=== PATIENT | male | born 1955 | race Caucasian/White ===

== ENCOUNTER 2017-05-04 18:56 | Observation (INO) | payer OTHER ==
[~2017-05-04] VITALS: Ht 180.3 cm; Wt 117.5 kg
[2017-05-04] VITALS (10 sets, daily range): BP systolic 116–165; BP diastolic 74–93; PULSE 60–75; RESP 18–20; TEMP 99.6; O2SAT 94–96
[~2017-05-04 18:56] MED LIST: ASPI81 CHEW; ATEN1TAB73; CEFU1TAB43 PO; CLON.1 PO; LISI2.5T55 PO; MEDR4PAK3 PO; TAB-TAB PO
[2017-05-04] MEDS ORDERED: ASPIRIN 81 MG CHEW TAB PO ONE (20:00)
[2017-05-04] MEDS ORDERED: SODIUM CHLORIDE 0.9% FLUSH 10 ML FLUSH IVF PRN (20:00)
[2017-05-04] MEDS: NITROGLYCERIN 0.4 MG SL 25 TABS/BTL SL SCH ×2 (20:24→20:30)
[2017-05-04 20:30] LABS: AUTOMATED NEUTROPHIL # 9.5 TH/MM3 (1.8-7.7); BASOPHIL # 0.1 TH/MM3 (0-0.2); BASOPHIL % 0.9 % (0.0-2.0); EOSINOPHIL # 0.4 TH/MM3 (0-0.4); EOSINOPHIL % 3.4 % (0.0-4.0); HEMATOCRIT 41.6 % (39.0-51.0); LYMPH % 13.6 % (9.0-44.0); LYMPHOCYTE # 1.7 TH/MM3 (1.0-4.8); MEAN CELL VOLUME 84.5 FL (80.0-100.0); MEAN CORPUSCULAR HEMOGLOBIN 27.9 PG (27.0-34.0); MONO % 5.4 % (0.0-8.0); NEUT % 76.7 % (16.0-70.0); PLATELET COUNT 212 TH/MM3 (150-450); RED BLOOD COUNT 4.93 MIL/MM3 (4.50-5.90); WHITE BLOOD COUNT 12.4 TH/MM3 (4.0-11.0)
[2017-05-04 20:33] LABS: HEMO FLAGS DIFF FINAL
[2017-05-04 20:34] LABS: CHLORIDE 103 MEQ/L (98-107); SODIUM (NA) 136 MEQ/L (136-145)
[2017-05-04 20:38] LABS: ANION GAP 8 MEQ/L (5-15); BICARBONATE 25.3 MEQ/L (21.0-32.0); BLOOD UREA NITROGEN 18 MG/DL (7-18)
[2017-05-04 20:41] LABS: ALT (GPT) 25 U/L (12-78); AST (GOT) 17 U/L (15-37); GLOMERULAR FILTRATION RATE 68 ML/MIN (>89)
[2017-05-04 20:42] LABS: APTT (PATIENT) 28.5 SEC (24.3-30.1)
[2017-05-04 20:43] LABS: TOTAL BILIRUBIN ADULT 0.6 MG/DL (0.2-1.0)
[2017-05-04 20:44] LABS: ALKALINE PHOSPHATASE 73 U/L (45-117); CREATINE KINASE 109 U/L (39-308)
[2017-05-04 20:56] LABS: CKMB 0.8 NG/ML (0.5-3.6)
[2017-05-04] MEDS ORDERED: POTASSIUM CHLORIDE 10 MEQ CONTROLLED RELEASE TAB PO ONE (21:00)
--- NOTE | 2017-05-04 21:07 | RADRPT ---
EXAM DATE/TIME: 05/04/2017 19:57 [facility] COMPARISON: No previous studies available for comparison. INDICATIONS : Chest pain. MEDICAL HISTORY : None. SURGICAL HISTORY : None. ENCOUNTER: Initial ACUITY: 4 - 6 days PAIN SCORE: 8/10 LOCATION: Bilateral chest FINDINGS: PA and lateral views of the chest demonstrate the lungs to be symmetrically aerated without evidence of mass, infiltrate or effusion. Minimal basal atelectasis. The cardiomediastinal contours are unrema rkable. Osseous structures are intact. CONCLUSION: 1. Minimal base atelectasis. No consolidation or significant effusion. Mildly tortuous aorta. José Manuel Anthony MD on May 04, 2017 at 21:05 Board Certified Radiologist. This report was verified electronically.
--- NOTE | 2017-05-04 21:10 | PD ---
HPI Chief Complaint: Chest Pain Time Seen by Provider: 19:46 Travel History International Travel<30 days: No Contact w/Intl Traveler<30days: No Traveled to known affect area: No History of Present Illness HPI Patient is a 61-year-old male comes in complaining of back and chest pain. He says he's been having pain in the center of his back since Wednesday. He says that recently he has developed pain in tightness to the front of his chest. He says he has never had pain like this before. He says nothing relieves the pain. He says that taking deep breaths makes the pain worse. He has been using a heat pack on his back which has helped a little with the back pain, but he is worried about his chest pain. He denies nausea or vomiting. He says he' s been feeling very weak and tired. He denies fever or chills, he denies cough or cold. PFSH Past Medical History Depression: Yes Diabetes: No Diminished Hearing: No Hypertension: Yes Tetanus Vaccination: < 5 Years Influenza Vaccination: Yes Past Surgical History Neurologic Surgery: Yes (CERVICAL FUSION) Tonsillectomy: Yes (tonsils and adenoids ) Social History Alcohol Use: No Tobacco Use: No Substance Use: No Allergies-Medications (Allergen,Severity, Reaction): Coded Allergies: Lisinopril (Verified Allergy, Severe, angioedema, 05/04/17) All medications that end with -prils Reported Meds & Prescriptions Reported Meds & Active Scripts Active Reported Aspirin 81 Mg Tab 81 Mg CHEW DAILY Multivitamin (Multivitamins) 1 Tab Tab 1 Tab PO DAILY Tenormin (Atenolol) 25 Mg Tab 0 Mg UNKNOWN DOSE Review of Systems Except as stated in HPI: all other systems reviewed are Neg General / Constitutional: No: Fever, Chills Eyes: No: Blurred Vision HENT: No: Headaches, Lightheadedness Cardiovascular: Positive: Chest Pain or Discomfort Respiratory: Positive: Shortness of Breath, No: Cough Gastrointestinal: No: Nausea, Vomiting Musculoskeletal: No: Edema, Pain Skin: No Rash, No Itching, No Change in Pigmentation Neurologic: Positive: Weakness Physical Exam Narrative GENERAL: Awake and alert, in no acute distress. SKIN: Focused skin assessment warm/dry. HEAD: Atraumatic. Normocephalic. EYES: Pupils equal and round. No scleral icterus. ENT: Mucous membranes pink and moist. NECK: Trachea midline. No JVD. CARDIOVASCULAR: Regular rate and rhythm. No murmur appreciated. RESPIRATORY: No accessory muscle use. Clear to auscultation. Breath sounds equal bilaterally. GASTROINTESTINAL: Abdomen soft, non-tender, nondistended. MUSCULOSKELETAL: No obvious deformities. No clubbing. No cyanosis. No edema. NEUROLOGICAL: Awake and alert. No obvious cranial nerve deficits. Motor grossly within normal limits. Normal speech. PSYCHIATRIC: Appropriate mood and affect; insight and judgment normal. Data Data Last Documented VS Vital Signs Date Time Temp Pulse Resp B/P Pulse Ox O2 Delivery O2 Flow Rate FiO2 05/04/17 20:35 75 18 121/74 94 Room Air 05/04/17 19:02 99.6 Orders Electrocardiogram (05/04/17 ) Ckmb (Isoenzyme) Profile (05/04/17 19:53) Complete Blood Count With Diff (05/04/17 19:53) Comprehensive Metabolic Panel (05/04/17 19:53) Prothrombin Time / Inr (Pt) (05/04/17 19:53) Act Partial Throm Time (Ptt) (05/04/17 19:53) Troponin I (05/04/17 19:53) Ecg Monitoring (05/04/17 19:53) Bilateral Bp Monitoring (05/04/17 19:53) Iv Access Insert/Monitor (05/04/17 19:53) Oximetry (05/04/17 19:53) Oxygen Administration (05/04/17 19:53) Aspirin Chew (Aspirin Chew) (05/04/17 20:00) Sodium Chloride 0.9% Flush (Ns Flush) (05/04/17 20:00) Nitroglycerin Sl (Nitrostat Sl) (05/04/17 20:00) Chest, Pa & Lat (05/04/17 19:53) CKMB (05/04/17 20:05) CKMB% (05/04/17 20:05) Potassium Chloride (Kcl) (05/04/17 21:00) Morphine Inj (Morphine Inj) (05/04/17 21:15) Labs Laboratory Tests Test 05/04/17 20:05 White Blood Count 12.4 TH/MM3 Red Blood Count 4.93 MIL/MM3 Hemoglobin 13.8 GM/DL Hematocrit 41.6 % Mean Corpuscular Volume 84.5 FL Mean Corpuscular Hemoglobin 27.9 PG Mean Corpuscular Hemoglobin 33.0 % Concent Red Cell Distribution Width 14.0 % Platelet Count 212 TH/MM3 Mean Platelet Volume 8.6 FL Neutrophils (%) (Auto) 76.7 % Lymphocytes (%) (Auto) 13.6 % Monocytes (%) (Auto) 5.4 % Eosinophils (%) (Auto) 3.4 % Basophils (%) (Auto) 0.9 % Neutrophils # (Auto) 9.5 TH/MM3 Lymphocytes # (Auto) 1.7 TH/MM3 Monocytes # (Auto) 0.7 TH/MM3 Eosinophils # (Auto) 0.4 TH/MM3 Basophils # (Auto) 0.1 TH/MM3 CBC Comment DIFF FINAL Differential Comment Prothrombin Time 11.0 SEC Prothromb Time International 1.0 RATIO Ratio Activated Partial 28.5 SEC Thromboplast Time Sodium Level 136 MEQ/L Potassium Level 3.0 MEQ/L Chloride Level 103 MEQ/L Carbon Dioxide Level 25.3 MEQ/L Anion Gap 8 MEQ/L Blood Urea Nitrogen 18 MG/DL Creatinine 1.10 MG/DL Estimat Glomerular Filtration 68 ML/MIN Rate Random Glucose 92 MG/DL Calcium Level 8.6 MG/DL Total Bilirubin 0.6 MG/DL Aspartate Amino Transf 17 U/L (AST/SGOT) Alanine Aminotransferase 25 U/L (ALT/SGPT) Alkaline Phosphatase 73 U/L Total Creatine Kinase 109 U/L Creatine Kinase MB 0.8 NG/ML Troponin I LESS THAN 0.02 NG/ML Total Protein 7.2 GM/DL Albumin 3.4 GM/DL [facility] Medical Decision Making Medical Screen Exam Complete: Yes Emergency Medical Condition: Yes Medical Record Reviewed: Yes Interpretation(s) ECG shows normal sinus rhythm, no ST elevation or depression, normal intervals Differential Diagnosis ACS versus NSTEMI versus STEMI versus pneumonia versus pneumothorax versus gastroenteritis Narrative Course Patient is a 61-year-old male comes in complaining of back and chest pain. Exam shows no acute abnormalities, pain is not reproducible. IV established, labs sent. Patient connected to the threat monitoring analyst. A potassium of 3.0, this was replaced. Troponin is negative. Chest x-ray shows no acute abnormalities. Patient was given 2 nitroglycerin with improvement of his chest pain. He says he is still having back pain. Given aspirin and morphine. Patient will be placed in chest pain center for further management. He will require a CPAP to sleep at night due to severe sleep apnea. Diagnosis Primary Impression: Chest pain Qualified Code: R07.9 - Chest pain, unspecified type Admitting Information Admitting Physician Requests: Observation Condition: Stable Fide Gorman MD May 04, 2017 21:10
[2017-05-04] MEDS ORDERED: MORPHINE SULFATE 4 MG/ML INJ IV PUSH ONE (21:15)
[2017-05-04] MEDS ORDERED: SODIUM CHLORIDE 0.9% FLUSH 10 ML FLUSH IV FLUSH PRN (21:45)
[2017-05-04] MEDS ORDERED: ASPI325T PO (21:55)
[2017-05-04] MEDS ORDERED: ATEN25TA PO (21:55)
[2017-05-04] MEDS ORDERED: ATOR10TA15 PO (21:56)
[2017-05-04] MEDS ORDERED: MULTTAB67 PO (21:56)
[2017-05-04] MEDS ORDERED: VERA40TA PO (21:57)
[2017-05-04] MEDS ORDERED: POTA10CA PO (21:57)
[2017-05-04] MEDS ORDERED: MAGN250T11 PO (21:58)
[2017-05-04] MEDS ORDERED: Diuretic PO (22:00)
[2017-05-04 23:56] LABS: CREATINE KINASE 92 U/L (39-308)
[2017-05-05] VITALS (13 sets, daily range): BP systolic 106–156; BP diastolic 64–91; PULSE 59–109; RESP 18–20; TEMP 97.1–99.3; O2SAT 94–97
[2017-05-05 02:36] LABS: CREATINE KINASE 93 U/L (39-308)
--- NOTE | 2017-05-05 08:18 | EKG ---
Date Performed: 05/05/2017 Time Performed: 02:03:09 PTAGE: 61 years EKG: Sinus rhythm WITH FREQUENT ECTOPIC PREMATURE COMPLEXES MODERATE T-WAVE ABNORMALITY, CONSIDER LATERAL ISCHEMIA ABN ORMAL ECG PREVIOUS TRACING : 05/04/2017 23.14 DOCTOR: Popeye Levi Interpretating Date/Time 05/05/2017 08:16:44
--- NOTE | 2017-05-05 08:21 | EKG ---
Date Performed: 05/04/2017 Time Performed: 23:14:13 PTAGE: 61 years EKG: Sinus rhythm NONSPECIFIC T-WAVE ABNORMALITY BORDERLINE ECG PREVIOUS TRACING : 05/04/2017 19.13 DOCTOR: Popeye Levi Interpretating Date/Time 05/05/2017 08:19:46
--- NOTE | 2017-05-05 08:24 | HHI.HP ---
[facility] Service [facility] Primary Care Physician Chayo Holloway MD Admission Diagnosis Chest Pain Diagnoses: (1) Chest pain Diagnosis: Principal (2) Acute upper back pain Diagnosis: Principal (3) Leukocytosis Diagnosis: Principal (4) Hypokalemia Diagnosis: Principal Chief Complaint: chest and back pain Travel History International Travel<30 Days: No Contact w/Intl Traveler <30 Da: No Traveled to Known Affected Are: No History of Present Illness 61-year-old male with history of hypertension and hyperlipidemia presents with complaint of chest and back pain. He states both started at the same time on Wednesday. He localizes pain over both sides of the upper chest as well as the center of the back. He states the chest pain feels like "it's radiating out" like the "veins and arteries". He describes the back pain as sharp and intense. Denies association with exertion. He states he had relief of his back pain last night with the morphine. He states the nitroglycerin briefly helped his chest pain making it less intense. He states both pains returned at 5-6 AM this morning. States the pain is constant. He rates his current chest pain a 5/10 and his back pain an 8/10. He denies any radiation of pain to the jaws/neck/shoulders/arms. Denies any new numbness or tingling in the upper extremities associated with symptoms. He states he had chills yesterday, but denies any true diaphoresis. He admits to pain with deep breaths but denies true shortness of breath although states his breathing is mildly labored when he lies flat. Admits to decreased energy. Denies any headache, blurred vision, or dizziness. Denies palpitations. He does admit to belching which started at the time of his symptoms but denies any regurgitation or changes in his diet. Denies any dysphagia, abdominal pain, nausea, vomiting , diarrhea, constipation, hematochezia, melena. Denies any regular over-the- counter NSAID use. He denies any fevers, cold or cough symptoms. Denies any leg swelling. Patient denies any recent sedentary travel, history of DVT or PE , hemoptysis, recent surgery/injuries/hospitalization in the last 3 months, active cancer, or hormone use. The patient had a nuclear stress test performed 20 years ago which was normal. Patient states he had a physical with his primary care physician, Dr. Holloway, 2 weeks ago. Denies history of aneurysms, coronary artery disease, diabetes. Review of Systems Constitutional: COMPLAINS OF: Chills, DENIES: Diaphoretic episodes, Fever, Dizziness Eyes: DENIES: Blurred vision Ears, nose, mouth, throat: DENIES: Throat pain, Ear Pain, Running Nose Respiratory: DENIES: Cough, Hemoptysis, Shortness of breath Cardiovascular: COMPLAINS OF: Chest pain, Orthopnea (? mildly labored when supine), DENIES: Palpitations, Lower Extremity Edema Gastrointestinal: DENIES: Abdominal pain, Black stools, Bloody stools, Constipation, Diarrhea, Nausea, Vomiting, Difficulty Swallowing Genitourinary: DENIES: Urinary frequency, Dysuria Musculoskeletal: COMPLAINS OF: Back pain, DENIES: Neck pain Integumentary: DENIES: Rash Neurologic: DENIES: Headache Past Family Social History Past Medical History HTN HLD Past Surgical History Cervical fusion C4-5 17 years ago Bilateral cataracts Tonsillectomy and adenoidectomy Reported Medications Reported Meds & Active Scripts Magnesium Oxide 250 Mg Tab 250 Mg PO DAILY Potassium Chloride ER (Potassium Chloride) 10 Meq Cap 10 Meq PO DAILY Multiple Vitamin 1 Tab 1 Tab PO DAILY Aspirin 325 Mg Tab 325 Mg PO DAILY verified with patient Verified with outpatient pharmacy: Verapamil ER 240 Mg PO daily Atorvastatin (Atorvastatin Calcium) 20 Mg PO daily Atenolol 50 Mg PO daily Chlorthalidone 25 mg po daily Allergies: Coded Allergies: Lisinopril (Verified Allergy, Severe, angioedema, 05/04/17) All medications that end with -prils Family History Mother: Still living. History of small cell lung cancer due to smoking. Patient states she had heart issues but is unsure if it was related to chemotherapy. Denies history of [place]. Father: [place] in his 50s. from intestinal rupture. Sister: Morbidly obese with Type 2 diabetes. Social History No history of alcohol use. Quit smoking cigarettes 38 years ago. Prior to this smoked half pack per day. Started smoking at age 15. Patient states he sometimes smokes a "joint". Denies history of any other illicit drug use including IVDA or cocaine use. Physical Exam Vital Signs Vital Signs Date Time Temp Pulse Resp B/P Pulse Ox O2 Delivery O2 Flow Rate FiO2 05/05/17 07:08 97 Room Air 05/05/17 07:00 61 18 142/87 97 Room Air 05/05/17 05:35 98.4 61 20 134/86 97 CPAP 05/05/17 02:00 63 18 96 CPAP 05/05/17 02:00 98.3 63 18 135/78 96 CPAP 05/05/17 00:35 60 18 137/79 95 Room Air 05/04/17 23:35 60 18 140/84 95 Room Air 05/04/17 23:08 18 05/04/17 22:35 64 18 140/83 95 Room Air 05/04/17 22:15 94 21 05/04/17 21:35 68 18 116/84 95 Room Air 05/04/17 21:05 66 18 140/77 95 Room Air 05/04/17 20:35 75 18 121/74 94 Room Air 05/04/17 20:29 74 18 138/84 94 Room Air 05/04/17 20:23 72 18 148/93 95 Room Air 05/04/17 20:15 68 96 Room Air 05/04/17 20:00 96 Room Air 05/04/17 20:00 70 18 153/90 95 Room Air 149/93 05/04/17 20:00 96 Room Air 05/04/17 19:02 99.6 75 20 165/88 96 Physical Exam GENERAL: This is a well-nourished, well-developed patient, in no apparent distress. SKIN: No rashes, ecchymoses or lesions. Warm and dry. HEAD: Atraumatic. Normocephalic. EYES: No scleral icterus. No injection or drainage. ENT: Uvula midline. Airway patent. NECK: No cervical spine tenderness. Full range of motion without difficulty. CHEST: No reproducible chest wall tenderness. CARDIOVASCULAR: Normal rate and regular rhythm without murmurs, gallops, or rubs. RESPIRATORY: Clear to auscultation. Breath sounds equal bilaterally. No wheezes , rales, or rhonchi. GASTROINTESTINAL: Normoactive bowel sounds. Abdomen soft, non-tender, nondistended. No guarding. MUSCULOSKELETAL: 2+ distal radial pulses bilaterally. 2+ DP pulses bilaterally. No lower extremity edema bilaterally. No calf pain bilaterally. BACK: No reproducible tenderness over the thoracic spine or musculature. No CVA tenderness bilaterally. NEUROLOGICAL: Awake and alert. Motor and sensory grossly within normal limits. Five out of 5 muscle strength in bilateral upper and lower extremities. Normal speech. PSYCHIATRIC: Normal mood and affect. Insight and judgment normal. Laboratory Laboratory Tests Test 05/04/17 05/04/17 05/05/17 20:05 23:25 02:00 White Blood Count 12.4 Red Blood Count 4.93 Hemoglobin 13.8 Hematocrit 41.6 Mean Corpuscular Volume 84.5 Mean Corpuscular Hemoglobin 27.9 Mean Corpuscular Hemoglobin 33.0 Concent Red Cell Distribution Width 14.0 Platelet Count 212 Mean Platelet Volume 8.6 Neutrophils (%) (Auto) 76.7 Lymphocytes (%) (Auto) 13.6 Monocytes (%) (Auto) 5.4 Eosinophils (%) (Auto) 3.4 Basophils (%) (Auto) 0.9 Neutrophils # (Auto) 9.5 Lymphocytes # (Auto) 1.7 Monocytes # (Auto) 0.7 Eosinophils # (Auto) 0.4 Basophils # (Auto) 0.1 CBC Comment DIFF FINAL Differential Comment Prothrombin Time 11.0 Prothromb Time International 1.0 Ratio Activated Partial 28.5 Thromboplast Time Sodium Level 136 Potassium Level 3.0 Chloride Level 103 Carbon Dioxide Level 25.3 Anion Gap 8 Blood Urea Nitrogen 18 Creatinine 1.10 Estimat Glomerular Filtration 68 Rate Random Glucose 92 Calcium Level 8.6 Total Bilirubin 0.6 Aspartate Amino Transf 17 (AST/SGOT) Alanine Aminotransferase 25 (ALT/SGPT) Alkaline Phosphatase 73 Total Creatine Kinase 109 92 93 Creatine Kinase MB 0.8 Troponin I LESS THAN 0.02 LESS THAN 0.02 LESS THAN 0.02 Total Protein 7.2 Albumin 3.4 Result Diagram: 05/04/17200405/04/172004 Imaging Last Impressions Chest X-Ray 05/04/171952 Signed Impressions: Service Date/Time: Thursday, May 04, 2017 19:57 - CONCLUSION: 1. Minimal base atelectasis. No consolidation or significant effusion. Mildly tortuous aorta. José Manuel Anthony MD Course EKG #1 with T-wave inversion in leads 3 and aVF and biphasic T waves in V3-V6. EKG #2 with T-wave abnormalities in the inferior leads and V4-V6. EKG #3 with sinus rhythm. Ectopic premature complexes. T wave inversions in aVF and V4-V6. Assessment and Plan Assessment and Plan 61-year-old male with: Chest and back pain: Started at the same time. Does not appear musculoskeletal. Patient has pleuritic symptoms. Did have some relief with nitroglycerin and morphine all the pain has returned. Chest x-ray personally interpreted with basilar atelectasis but no evidence of pneumonia. EKGs 3 personally interpreted as above with T wave abnormalities; no prior EKGs for comparison. Troponin 3 less than 0.02. -Telemetry -Nitroglycerin/Lucas/morphine prn chest pain -325 mg daily aspirin. -Although patient appears in no distress he admits to severe pain in his central upper back and chest which is concerning. Wells criteria for PE equals 0 points; no hypoxia evident. Patient has tortuous aorta on x-ray. Will order CTA thoracic aorta to rule out dissection. Provided this is normal, will proceed with nuclear stress test. Patient to remain nothing by mouth. Leukocytosis: 12.4, likely stress reaction. No evidence of infection. Hypokalemia: K+ 3.0. Patient administered 30 mEq by mouth KCl in the ED. Likely attributed to diuretic use although patient does take potassium and magnesium supplementation at home. -Repeat potassium level 3.1 this morning. Another 40 mEq po KCl ordered. Mg level normal at 2.4. HTN: BP elevated at 165/88 on arrival, improved this morning. HR 59 this morning. -Hold Verapamil and atenolol for now. Will resume after stress test. -Need to verify diuretic with outpatient pharmacy HLD: Continue statin. GI prophylaxis: Pepcid 20 mg po bid. DVT prevention: TEDs/SCDs. Update: Aorta CTA negative for dissection but does show dense coronary calcifications present. Myocardial perfusion scan is abnormal with redistribution in the large segment of the septum beginning in the mid septal wall extending to the apex. There is mild hypokinesis of the septum. I discussed patient with Dr. Murillo, on-call [facility] corporate tax manager. Dr. Murillo states he will see the patient tomorrow morning, likely cath. [facility]. Cardiology consult placed. Patient continues to have chest pain although appears comfortable. Nitroglycerin ointment to be applied. Patient takes 325 mg of aspirin at home, and was given an additional 162 mg last night. Patient given another 162 mg of aspirin now. Patient care to be transferred to [facility]. I spoke with Dr. Ly who will inform Dr. Mishra, [facility] hospitalist at [facility]. If patient is not transferred till tomorrow morning then Dr. Ly will take care of patient today while still here at . Medications were personally verified with outpatient [facility] pharmacy PO and med rec amended. BP elevated this afternoon. Atenolol resumed now and other home medications resumed as appropriate. Admitted to inpatient. Discussed Condition With Dr. Beltran, attending. Dr. Murillo, corporate tax manager. Problem Qualifiers (1) Chest pain: Qualified Code: R07.9 - Chest pain, unspecified type Charisse Roberts May 05, 2017 08:24
--- NOTE | 2017-05-05 08:26 | EKG ---
Date Performed: 05/04/2017 Time Performed: 19:13:15 PTAGE: 61 years EKG: Sinus rhythm POSSIBLE RIGHT VENTRICULAR CONDUCTION DELAY NONSPECIFIC T-WAVE ABNORMALITY BORDERLINE ECG PREVIOUS TRACING : 07/09/2004 18.32 DOCTOR: Popeye Levi Interpretating Date/Time 05/05/2017 08:24:10
[2017-05-05] MEDS ORDERED: ONDANSETRON HCL 4 MG/2 ML VIAL IV PRN (09:00)
[2017-05-05] MEDS ORDERED: ACETAMINOPHEN 500 MG CPLT PO PRN (09:00)
[2017-05-05] MEDS ORDERED: NITROGLYCERIN 0.4 MG SL 25 TABS/BTL SL PRN (09:00)
[2017-05-05] MEDS ORDERED: MORPHINE SULFATE 4 MG/ML INJ IV PRN (09:00)
[2017-05-05] MEDS ORDERED: PNEUMOCOCCAL POLYVALENT INJ 25 MCG/0.5 ML SYR IM ONE (09:00)
[2017-05-05] MEDS ORDERED: ACETAMINOPHEN/HYDROcodone 325 MG/7.5 MG TAB PO PRN (09:00)
[2017-05-05] MEDS ORDERED: IOHEXOL 350 MG/ML 10 ML VIAL (for RAD DIAG) IV ONE (09:31)
[2017-05-05] MEDS: FAMOTIDINE 20 MG TAB PO SCH ×2 (09:47→21:18)
[2017-05-05] MEDS: SODIUM CHLORIDE 0.9% FLUSH 10 ML FLUSH IV FLUSH SCH ×2 (09:47→21:18)
--- NOTE | 2017-05-05 09:47 | RADRPT ---
EXAM DATE/TIME: 05/05/2017 09:14 [facility] COMPARISON: No previous studies available for comparison. INDICATIONS : Chest and upper back pain. Evaluate for aortic dissection. IV CONTRAST: 95 cc Omnipaque 350 (iohexol) IV RADIATION DOSE: 22.57 CTDIvol (mGy) MEDICAL HISTORY : Hypertension. SURGICAL HISTORY : None. ENCOUNTER: Initial ACUITY: 4 - 6 days PAIN SCALE: 8/10 LOCATION: chest TECHNIQUE: Volumetric scanning was performed using a multi-row detector CT scanner. The data was post processed with a variety of visualization algorithms including full volume maximum intensity projection, multi -planar sliding thin slab reformation, curved planar reformation, and surface rendering techniques. Using automated exposure control and adjustment of the mA and/or kV according to patient size, radiat ion dose was kept as low as reasonably achievable to obtain optimal diagnostic quality images. DICOM format image data is available electronically for review and comparison. FINDINGS: LUNGS: Is mild probable atelectasis in the right lung base. MEDIASTINUM: There are small enhancing lymph nodes in the paratracheal region and subcarinal region in the mediast inum which may be reactive. The should be followed. Dense coronary calcifications present. ABDOMEN: The liver and spleen are free of focal defects. The gallbladder and pancreas demonstrate no abnormali ty. The adrenal glands are normal. The kidneys demonstrate no evidence of solid renal mass or hydrone phrosis. No free fluid or abdominal masses are identified. No para-aortic adenopathy is seen. PELVIS: No evidence of free fluid or pelvic mass. No abnormally enlarged inguinal or retroperitoneal lymph no jorge a are present. The bladder is unremarkable. THORACIC AORTA: The thoracic aortic root is normal with normal branching of the great vessels. There is no evidence of aneurysm or dissection. ABDOMINAL AORTA: The aorta is normal in caliber without aneurysm or dissection. The renal arteries are patent bilater ally with 2 renal arteries present on the right, both normal in appearance.. The proximal celiac and superior mesenteric arteries are patent and normal in diameter. PELVIC VESSELS: The internal iliac and external iliac vessels are patent without aneurysm or stenosis. CONCLUSION: No acute vascular process. Mild right lung base atelectasis. Mildly prominent enhancing lymph nodes in the mediastinum may be reactive. Clinical and imaging [facility] recommended. Dc Ingram MD on May 05, 2017 at 9:40 Board Certified Radiologist. This report was verified electronically.
[2017-05-05] MEDS: MULTIVITAMIN TAB PO SCH (10:31)
[2017-05-05 11:00] LABS: POTASSIUM 3.1 MEQ/L (3.5-5.1)
[2017-05-05 11:03] LABS: MAGNESIUM 2.4 MG/DL (1.5-2.5)
[2017-05-05] MEDS ORDERED: POTASSIUM CHLORIDE 20 MEQ CONTROLLED RELEASE TAB PO ONE (12:00)
[2017-05-05] MEDS ORDERED: REGADENOSON INJ 0.4 MG/5 ML SYR IV ONE (12:29)
--- NOTE | 2017-05-05 14:18 | RADRPT ---
EXAM DATE/TIME: 05/05/2017 12:41 [facility] COMPARISON: No previous studies available for comparison. INDICATIONS : Substernal chest pain with dyspnea. Angina. DOSE: 35 mCi Tc99m Myoview at stress. 11 mCi Tc99m Myoview at rest. 0.4 mg Lexiscan STRESS SYMPTOMS: Dyspnea and headache. EJECTION FRACTION: 57% MEDICAL HISTORY : Hypertension. SURGICAL HISTORY : Fusion, cervical. Tonsillectomy. Cataracts. ENCOUNTER: Initial ACUITY: 1 day PAIN SCALE: 6/10 LOCATION: Substernal chest TECHNIQUE: The patient underwent pharmacologic stress with infusion of prescribed dose. Continuous ECG tracing was monitored during stress. Gated SPECT imaging was performed after stress and conventional SPECT i maging was performed at rest. The examination was performed on a SPECT/CT scanner, both attenuation and non-corrected datasets were reviewed. FINDINGS: DISTRIBUTION: The best perfused myocardium is the lateral wall. PERFUSION STUDY: There is redistribution in the large segment of the septum beginning in mid-septal wall extending to the apex. GATED STUDY: There is mild hypokinesis in the septum. CONCLUSION: Stress-induced ischemia of septum RISK CATEGORY: Low (<1% Annual Mortality Rate) Chadwick Suarez MD FACR on May 05, 2017 at 14:14 Board Certified Radiologist. This report was verified electronically.
[2017-05-05] MEDS ORDERED: ASPIRIN EC 81 MG TABEC PO ONE (15:00)
[2017-05-05] MEDS ORDERED: ATOR20TA15 PO (15:19)
[2017-05-05] MEDS ORDERED: VERA1TAB17 PO (15:19)
[2017-05-05] MEDS ORDERED: CHLO25TA2 PO (15:19)
[2017-05-05] MEDS ORDERED: ATEN50TA PO (15:19)
[2017-05-05] MEDS: NITROGLYCERIN 2% OINT 1 GM PACKET TOP SCH ×2 (15:21→18:00)
--- NOTE | 2017-05-05 15:48 | TR ---
Date Performed: 05/05/2017 Time Performed: 13:03:34 DOCTOR: Klever Murillo DRUG LIST: CLINICAL HISTORY: CHEST PAIN REASON FOR TEST: Chest pain REASON FOR ENDING: OBSERVATION: CONCLUSION: Lexiscan stress test was performed under standard four minute protocol. Radionucl[place] e was injected one minute prior to ending the test. No electrocardiographic abormalities were present to suggest ischemia. Nuclear imaging and interpretation are pending. COMMENTS:
[2017-05-05] MEDS: ATENOLOL 50 MG TAB PO SCH (16:45)
[2017-05-05] MEDS ORDERED: CYCLOBENZAPRINE HCL 10 MG TAB PO ONE (18:00)
[2017-05-05] MEDS ORDERED: TEMAZEPAM 15 MG CAP PO PRN (18:00)
--- NOTE | 2017-05-05 18:00 | HHI.PR ---
Subjective Remarks Contacted by SAIRA Henson to see patient regarding transfer to our service from chest pain clinic. Patient continues to have some slight chest pain but complains more of interscapular back pain which is been ongoing intermittently since Wednesday. He does not recall any specific injury or any unusual activities that would've contributed to this. He did have a stress test noted today for stress-induced ischemia along the septum. Chest CTA negative for any obvious acute aortic abnormality. Denies any fever or chills. No recurrent cough or hemoptysis. Patient reports that he actually feels no pain when he is able to go to sleep. Objective Vitals Vital Signs Date Time Temp Pulse Resp B/P Pulse Ox O2 Delivery O2 Flow Rate FiO2 05/05/17 16:00 99.3 79 20 149/90 96 05/05/17 14:45 109 05/05/17 12:00 97.1 63 20 156/90 96 05/05/17 08:45 97.7 59 20 134/91 97 05/05/17 08:00 96 21 05/05/17 07:08 97 Room Air 05/05/17 07:00 61 18 142/87 97 Room Air 05/05/17 05:35 98.4 61 20 134/86 97 CPAP 05/05/17 02:00 63 18 96 CPAP 05/05/17 02:00 98.3 63 18 135/78 96 CPAP 05/05/17 00:35 60 18 137/79 95 Room Air 05/04/17 23:35 60 18 140/84 95 Room Air 05/04/17 23:08 18 05/04/17 22:35 64 18 140/83 95 Room Air 05/04/17 22:15 94 21 05/04/17 21:35 68 18 116/84 95 Room Air 05/04/17 21:05 66 18 140/77 95 Room Air 05/04/17 20:35 75 18 121/74 94 Room Air 05/04/17 20:29 74 18 138/84 94 Room Air 05/04/17 20:23 72 18 148/93 95 Room Air 05/04/17 20:15 68 96 Room Air 05/04/17 20:00 96 Room Air 05/04/17 20:00 70 18 153/90 95 Room Air 149/93 05/04/17 20:00 96 Room Air 05/04/17 19:02 99.6 75 20 165/88 96 05/04/17 05/04/17 05/05/17 14:59 22:59 06:59 # Voids 1 GENERAL: Lying in exam bed, alert and oriented, no acute distress. SKIN: Warm and dry. HEAD: Normocephalic. EYES: No scleral icterus. No injection or drainage. NECK: Supple, trachea midline. No JVD or lymphadenopathy. CARDIOVASCULAR: Regular rate and rhythm without murmurs, gallops, or rubs. RESPIRATORY: Breath sounds equal bilaterally. No accessory muscle use. GASTROINTESTINAL: Abdomen soft, non-tender, nondistended. Bowel sounds normal. MUSCULOSKELETAL: No cyanosis, or edema. No obvious mass or spasm in the mid back and interscapular region of discomfort. BACK: Nontender without obvious deformity. No CVA tenderness. Result Diagram: 05/04/17200405/05/17 1035 Urinary Catheter: No Vascular Central Line Catheter: No A/P Problem List: (1) Chest pain Status: Acute Plan: Noted stress-induced ischemia along the septum nuclear stress test today. We'll continue current therapy and patient be transferred to the [facility] per Dr. Murillo request. Likely to have cardiac catheter tomorrow. I communicated with Dr. Mishra regarding the case. (2) Acute upper back pain Status: Acute Plan: Try Flexeril. No obvious abnormality on musculoskeletal exam. (3) Leukocytosis Status: Acute Plan: Minimal and nonspecific. (4) Hypokalemia Status: Acute Plan: Replace and recheck. Assessment and Plan Transfer to the [facility] for further evaluation and treatment. Appears quite stable here. Problem Qualifiers (1) Chest pain: Qualified Code: R07.9 - Chest pain, unspecified type Jd Ly MD PhD May 05, 2017 18:00
[2017-05-05] MEDS ORDERED: ATORVASTATIN 10 MG TAB PO SCH (21:00)
[2017-05-05] MEDS: ATORVASTATIN 10 MG TAB PO SCH (21:18)
[2017-05-06] VITALS (28 sets, daily range): BP systolic 105–161; BP diastolic 69–108; PULSE 54–88; RESP 18–20; TEMP 97.9–99.8; O2SAT 93–98
[2017-05-06] MEDS: NITROGLYCERIN 2% OINT 1 GM PACKET TOP SCH ×4 (00:43→18:18)
[2017-05-06 07:04] LABS: AUTOMATED NEUTROPHIL # 7.5 TH/MM3 (1.8-7.7); BASOPHIL % 0.4 % (0.0-2.0); EOSINOPHIL # 0.2 TH/MM3 (0-0.4); HEMATOCRIT 37.6 % (39.0-51.0); HEMO FLAGS DIFF FINAL; LYMPH % 11.4 % (9.0-44.0); LYMPHOCYTE # 1.1 TH/MM3 (1.0-4.8); MEAN CELL VOLUME 84.2 FL (80.0-100.0); MEAN CORPUSCULAR HEMOGLOBIN 28.9 PG (27.0-34.0); MEAN CORPUSCULAR HGB CONC 34.3 % (32.0-36.0); MONO % 7.8 % (0.0-8.0); NEUT % 78.4 % (16.0-70.0); PLATELET COUNT 201 TH/MM3 (150-450); RED BLOOD COUNT 4.47 MIL/MM3 (4.50-5.90); RED CELL DISTRIBUTION WIDTH 14.7 % (11.6-17.2); WHITE BLOOD COUNT 9.5 TH/MM3 (4.0-11.0)
--- NOTE | 2017-05-06 07:57 | PD.CONS ---
[facility] Service cv Consult Requested By Reason for Consult chest pain Primary Care Physician Chayo Holloway MD History of Present Illness Here with HTN and hyperlipidemia admitted for chest pain. He states that on Wednesday he began having retrosternal chest pain that radiated to his back. He describes it a sharp pain. He had some relief with SL NTG. The pain returned and had been constant since yesterday. He denies any exertional component. He c/ o pleuritic pain but denies shortness of breath. He denies palpitation. He states he had a negative nuclear stress test 20 years ago Review of Systems Consitutional: DENIES: Fatigue, Fever, Chills, Weight gain, Weight loss Eyes: DENIES: Amaurosis Fugax, Change in vision HEENT: DENIES: Lightheadedness, Change in hearing Respiratory: DENIES: See HPI, Cough, Snoring, Shortness of breath, Wheezing, Sputum production Cardiovascular: COMPLAINS OF: See HPI Gastrointestinal: DENIES: Nausea, Vomiting, Change in bowel habits, Reflux, Bloody stools, Melena Genitourinary: DENIES: Urinary incontinence, Difficulty voiding Integumentary: DENIES: Rash Neurologic: DENIES: Tingling or numbness, Memory problems, Poor Balance, Stroke symptoms Musculoskeletal: DENIES: Joint pain, Muscle pain, Limited range of motion, Back pain Psychiatric: DENIES: Anxiety, Depression, Sleep disturbances Hematologic: DENIES: Bruising tendencies, Bleeding tendencies Endocrine: DENIES: Weight gain, Weight loss, Thyroid disease Past Family Social History Allergies: Coded Allergies: Lisinopril (Verified Allergy, Severe, angioedema, 05/04/17) All medications that end with -prils Past Medical History see HPI Past Surgical History Cervical fusion C4-5 17 years ago Bilateral cataracts Tonsillectomy and adenoidectomy Reported Medications Reported Meds & Active Scripts Active Chlorthalidone 25 Mg Tab 25 Mg PO DAILY Verapamil ER 24 HR (Verapamil HCl) 240 Mg Tab 240 Mg PO DAILY Atorvastatin (Atorvastatin Calcium) 20 Mg Tab 20 Mg PO DAILY Atenolol 50 Mg Tab 50 Mg PO DAILY Reported Magnesium Oxide 250 Mg Tab 250 Mg PO DAILY Potassium Chloride ER (Potassium Chloride) 10 Meq Cap 10 Meq PO DAILY Multiple Vitamin 1 Tab 1 Tab PO DAILY Aspirin 325 Mg Tab 325 Mg PO DAILY Active Ordered Medications Current Medications Medications (Trade) Dose Ordered Sig/Franky Route Start Time Stop Time Status Last Admin (NS Flush) 2 ml UNSCH PRN IV FLUSH 05/04/17 21:45 (NS Flush) 2 ml BID IV FLUSH 05/05/17 09:00 05/05/17 21:18 (Tylenol) 500 mg Q4H PRN PO 05/05/17 09:00 ([place] 7.5-325 Mg) 1 tab Q4H PRN PO 05/05/17 09:00 (Morphine Inj) 2 mg Q4H PRN IV 05/05/17 09:00 (Zofran Inj) 4 mg Q6H PRN IV 05/05/17 09:00 (Pepcid) 20 mg BID PO 05/05/17 09:00 05/05/17 21:18 (Ecotrin Ec) 325 mg DAILY PO 05/06/17 09:00 (Theragran) 1 tab DAILY PO 05/05/17 10:00 05/05/17 10:31 (Lipitor) 20 mg HS PO 05/05/17 21:00 05/05/17 21:18 (Nitroglycerin 2% Oint) 1 inch Q6HR TOP 05/05/17 15:00 05/06/17 06:21 (Tenormin) 50 mg DAILY PO 05/05/17 16:00 05/05/17 16:45 (KCl) 10 meq DAILY PO 05/06/17 09:00 (Isoptin Sr) 240 mg DAILY PO 05/06/17 09:00 Patient Own Medication PT OWN MED: (Chlorthalidone 25 MG) DAILY PO 05/06/17 09:00 (Restoril) 15 mg HS PRN PO 05/05/17 18:00 Family History Father: [place] in his 50s. from intestinal rupture. Social History Quit smoking 38 years ago had a 4 PYH prior to that denies alcohol admits to occasional marijuana Physical Exam Vital Signs Vital Signs Date Time Temp Pulse Resp B/P Pulse Ox O2 Delivery O2 Flow Rate FiO2 05/06/17 07:01 60 05/06/17 06:00 56 05/06/17 05:00 98.6 58 20 130/83 96 05/06/17 05:00 Bi-Pap 05/06/17 04:00 56 05/06/17 03:00 64 05/06/17 02:00 58 05/06/17 01:00 58 05/06/17 00:28 96 own cpap 21 05/06/17 00:00 66 05/06/17 00:00 98.4 60 20 122/84 94 05/06/17 00:00 Bi-Pap 05/05/17 22:00 62 05/05/17 21:00 68 05/05/17 20:00 99.0 67 20 121/77 96 05/05/17 20:00 67 05/05/17 20:00 Bi-Pap 05/05/17 16:00 99.3 79 20 149/90 96 05/05/17 14:45 109 05/05/17 12:00 97.1 63 20 156/90 96 05/05/17 08:45 97.7 59 20 134/91 97 05/05/17 08:00 96 21 Physical Exam GENERAL: Well-nourished, well-developed patient in no apparent distress. NECK: No JVD. No carotid bruit. CARDIOVASCULAR: Regular rate and rhythm. S1/S2 no murmur, rub, or gallop. RESPIRATORY: No accessory muscle use. Clear to auscultation. Breath sounds equal bilaterally. GASTROINTESTINAL: Abdomen soft, non-tender, nondistended. MUSCULOSKELETAL: Extremities without clubbing, cyanosis, or edema. Laboratory Laboratory Tests Test 05/05/17 05/06/17 10:35 05:08 Potassium Level 3.1 3.1 Magnesium Level 2.4 White Blood Count 9.5 Red Blood Count 4.47 Hemoglobin 12.9 Hematocrit 37.6 Mean Corpuscular Volume 84.2 Mean Corpuscular Hemoglobin 28.9 Mean Corpuscular Hemoglobin 34.3 Concent Red Cell Distribution Width 14.7 Platelet Count 201 Mean Platelet Volume 8.6 Neutrophils (%) (Auto) 78.4 Lymphocytes (%) (Auto) 11.4 Monocytes (%) (Auto) 7.8 Eosinophils (%) (Auto) 2.0 Basophils (%) (Auto) 0.4 Neutrophils # (Auto) 7.5 Lymphocytes # (Auto) 1.1 Monocytes # (Auto) 0.7 Eosinophils # (Auto) 0.2 Basophils # (Auto) 0.0 CBC Comment DIFF FINAL Differential Comment Result Diagram: 05/06/17 0508 05/06/17 0508 Assessment and Plan Problem List: (1) Chest pain Assessment and Plan So far cardiac work up shows negative troponin and nonspecific ECG changes. SPECT is abnormal showing ischemia. Will plan left heart cath and go from there. HTN - well controlled Problem Qualifiers (1) Chest pain: Qualified Code: R07.9 - Chest pain, unspecified type Gopi Alan May 06, 2017 07:57
[2017-05-06] MEDS: FAMOTIDINE 20 MG TAB PO SCH ×2 (08:51→21:24)
[2017-05-06] MEDS: ATENOLOL 50 MG TAB PO SCH (08:51)
[2017-05-06] MEDS: VERAPAMIL HCL 240 MG SUSTAINED RELEASE TAB PO SCH (08:51)
[2017-05-06] MEDS: MULTIVITAMIN TAB PO SCH (08:51)
[2017-05-06] MEDS: POTASSIUM CHLORIDE 10 MEQ CAP PO SCH (08:51)
[2017-05-06] MEDS: SODIUM CHLORIDE 0.9% FLUSH 10 ML FLUSH IV FLUSH SCH ×2 (09:00→21:00)
[2017-05-06] MEDS: PATIENT OWN MEDICATION (Chlorthalidone 25 MG) PO SCH (09:00)
[2017-05-06] MEDS ORDERED: ASPIRIN EC 325 MG TABEC PO SCH (09:00)
--- NOTE | 2017-05-06 09:58 | HHI.PR ---
Subjective Remarks pt says he is able to lie flat and get the pain in chest and back to stop.....sounds like there was worsening with deep breathing upon arrival. no association with food but he had alot of belching/burping. says ntg did help some. Objective Vitals heart reg lung cta abd s/nt ext no edema Vital Signs Date Time Temp Pulse Resp B/P Pulse Ox O2 Delivery O2 Flow Rate FiO2 05/06/17 09:06 98 05/06/17 07:01 60 05/06/17 06:00 56 05/06/17 05:00 98.6 58 20 130/83 96 05/06/17 05:00 Bi-Pap 05/06/17 04:00 56 05/06/17 03:00 64 05/06/17 02:00 58 05/06/17 01:00 58 05/06/17 00:28 96 own cpap 21 05/06/17 00:00 66 05/06/17 00:00 98.4 60 20 122/84 94 05/06/17 00:00 Bi-Pap 05/05/17 22:00 62 05/05/17 21:00 68 05/05/17 20:00 99.0 67 20 121/77 96 05/05/17 20:00 67 05/05/17 20:00 Bi-Pap 05/05/17 16:00 99.3 79 20 149/90 96 05/05/17 14:45 109 05/05/17 12:00 97.1 63 20 156/90 96 05/05/17 05/05/17 05/06/17 14:59 22:59 06:59 Intake Total 0 ml 240 ml Output Total 400 ml Balance 0 ml -160 ml Intake Oral 0 ml 240 ml Output Urine Total 400 ml # Voids 3 Result Diagram: 05/06/17 0508 05/06/17 0508 A/P Problem List: (1) Chest pain Status: Acute Plan: Pt presented with atypical cp with some pain also between shoulder blades. Gives a hx that it worsened with breathing yesterday. Pt had ct to eval aorta 05/05 and radiologist comments on mildly enlarged mediastinal lymph nodes. pt gave no hx of recent resp illness. lexiscan abnormal and pt going for [facility] today d dimer pending..if positive will plan for cta chest once clear to give more contrast. ?trial of solumedrol for pleuritic pain if above unremarkable and still has sx' s. (2) Hypokalemia Status: Acute Plan: Replace and recheck. (3) GENEVA (obstructive sleep apnea) Status: Chronic Plan: pt on cpap. Problem Qualifiers (1) Chest pain: Qualified Code: R07.9 - Chest pain, unspecified type Deangelo Mishra MD May 06, 2017 09:58
[2017-05-06] MEDS ORDERED: POTASSIUM CHLORIDE 20 MEQ CONTROLLED RELEASE TAB PO ONE (10:00)
[2017-05-06] MEDS ORDERED: HEPARIN-NS/PF INJ 500 ML ONE (12:11)
[2017-05-06] MEDS ORDERED: MIDAZOLAM HCL 5 MG/5 ML VIAL ONE (12:12)
--- NOTE | 2017-05-06 13:11 | CATHPROC ---
[employer] HIS Report Study Information Study Number Admission Scheduled Start Study Start [id number] May 05 2017 3:30PM 05/06/2017 May 06 2017 12:14PM [place] [facility] Cardiac Catheterization Admit Source Facility Department Emergency department [facility] Laboratory Manager Physician and Clinical Staff Initial Klever [employer] Design Consultant Miriam Gonzalez,RN Recorder Abbe Reilly,RT(R) ScrKeeley Young,RT(R) ScrCarlos Mendoza RCIS(BS) Procedures Performed Procedure Location (Site) Vessel Name Angiogram LV LV Ventricle Coronary Angiograms LCA Left Coronary Coronary Angiograms RCA Right Coronary L Heart Cath Equipment Time Body Man Description Size Mfg Part Number Used/Scraped TRANSDUCER, TRUWAVE [id number] 12:16 BRAGG BHAKTA * Used W/STOCKCOCK *[id number] *[id number] [id number] *[id number] *[id number] [id number] *[id number] 12:16 [employer] PACK, CCL CUSTOM * Used *[id number] 12:16 [employer] PACER PEN, SKIN DUAL W/ RULER * Used *[id number] 12:16 [employer] MEDICAL SHEATH, FR6.5 PRELUDE 11CM FR 6.5 038ACT Used *[id number] 12:16 [employer] MEDICAL WIRE, 3MMJ .035 180CM 180CM Used *[id number] 12:16 NAMIC MANIFOLD, 4 PORT * Used *[id number] 12:16 [employer] OMNIPAQUE, 350 MG, 100ML 100ML [id number] Used 12:50 [employer] OMNIPAQUE, 350 MG, 50ML 50ML [id number] Used [id number] 12:16 [employer] BLANKET,WARM AIR CCL * Used *[id number] History: Current Medications Medication Dosage/Unit Route Frequency Last Date/Time Taken LIPITOR ASA History: Allergies Allergy Reaction No Known Allergies Lisinopril angioedema History: Risk Factors Family History of Hypertension Dyslipidemia Previous OH Previous Heart Failure Premature CAD Yes Yes Yes No No Prior Valve Prior PCI Prior CABG Surgery No No No Cerebrovascular Peripheral Artery Chronic Lung On Dialysis Diabetes Disease Disease Disease No No No No No History: Symptoms/Diagnosis Selection Items Angina-unstable Chest pain History: Stress Tests Stress or Imaging Studies Performed Yes Standard Exercise Stress Test No Stress Echo No Stress Test SPECT Stress Test SPECT Result Stress Test SPECT Ischemia Risk/Extent Yes Positive High Stress Test CMR No Cardiac CTA Coronary Calcium Score No No History: Other Disease Selection Items HTN History: Other Current Smoker Method Quit Packs a Day Years Used Pack Years No Cigarettes 38 Years Ago 1 6 6 Labs Hgb (g/dl) Hct (%) RBC (MIL/MM3) WBC (l/cumm) Platelets (thousands) 11.60-17.00 35.00-51.00 4.00-5.90 4.00-11.00 150.00-450.00 12.9 37.6 4.4 9.5 201 Glucose (mg/dl) BUN (mg/dl) Creatinine (mg/dl) BUN:Creatinine (1:x) 74.00-106.00 7.00-18.00 0.50-1.30 10.00-20.00 92 18 1.1 16.4 Na (meq/l) K (meq/l) Cl (meq/l) CO2 (mmol/L) Ca (mg/dl) 136.00-145.00 3.50-5.10 98.00-107.00 21.00-32.00 8.50-10.10 136 3 103 25.3 8.6 PT (sec) PTT (sec) INR (PTT:PT) 9.80-11.60 24.30-30.10 0.90-1.10 11 28.5 1 Troponin I (ng/ml) Troponin T (ng/ml) CPK (u/l) CPK-MB (ng/ML) 0.02-0.05 0.40-2.10 26.00-308.00 0.50-3.60 0.02 0.02 93 0.8 Medication Medication Total Dose (Bolus/Oral) Medication Total Dosage/Unit 1% XYLOCAINE 20 mL NITRO OINTMENT 1 inches VERSED 2 mg Medications (Bolus/Oral) Medication Time Given Dosage/Unit Administered By Reason NITRO OINTMENT 05/06/2017 12:16:33 PM 1 inches Patient arrived on 1 inches NITRO OINTMENT via Peripheral IV. Left leg VERSED 05/06/2017 12:23:42 PM 2 mg Miriam Gonzalez 2 mg VERSED given in lab by Miriam Gonzalez, RN in Right Antecubital via Peripheral IV. 1% XYLOCAINE 05/06/2017 12:31:09 PM 20 mL Klever Murillo 20 mL 1% XYLOCAINE given in lab by Klever Murillo in Right Groin via Subcutaneous. Medication (Drip) Medication Time Given Dosage/Unit Concentration/Unit Diluent (ml) Solution IV Solutions 05/06/2017 12:16:56 PM 0 mL (IV) 500 NaCl .9 IV Solutions given in lab by Miriam Gonzalez RN in Right Antecubital via Peripheral IV. Pump/Drip Fl ow = 20 ml/hr using NaCl .9. Initial Case Assessment Cardiovascular HR Rhythm NIBP Chest Pain 69 Sinus 159/93 0 Edema Present Skin color Skin None Normal Warm Dry Circulatory - Right Pulses Dorsalis Pedis Femoral 2 1 Scale (0,1,2,3,4,d) Circulatory - Left Pulses Dorsalis Pedis Femoral 2 1 Scale (0,1,2,3,4,d) Neurological State Oriented to time-place- Alert Moves all extremities person Respiration - General Respiration Rate SpO2 (%) O2 (lpm) (B/min) 15 97 0 Final Case Assessment Cardiovascular HR Rhythm NIBP Chest Pain 59 Sinus 151/89 0 Edema Present Skin color Skin None Normal Warm Dry Circulatory - Right Pulses Dorsalis Pedis Femoral 2 1 Scale (0,1,2,3,4,d) Circulatory - Left Pulses Dorsalis Pedis Femoral 2 1 Scale (0,1,2,3,4,d) Neurological State Oriented to time-place- Alert Moves all extremities person Respiration - General Respiration Rate SpO2 (%) O2 (lpm) (B/min) 21 95 0 Chronological Log Time Study Chronological Log 12:02:53 Patient arrived via Bed. 12:13:55 Patient Name, D.O.B, / Armband Verified By R.N. 12:13:55 Consent signed by the physician and the patient and verified by the [facility] Manager staff. 12:13:56 Pre-op and post- op instructions given; patient acknowledges understanding of instructions. 12:13:57 Verbal Stimulation=2 Physical Stimulation=2 Airway=2 Respiration=2 TOTAL=8. (0=absent, 1=li mited, 2=present) Vitals capture started with the following parameters, Patient=Adult, Interval=5 min, Initial Pr bgfbfc=471 mmHg, 12:15:55 Deflation Rate=5 mmHg, Cuff placed on Right Arm 12:16:08 Presedation assessment performed by [facility] Laboratory Manager RN. 12:16:11 Patient has been NPO for More than 6Hrs. 12:16:12 Skin Breakdown-none per patient. 12:16:20 Patient Warmer Placed on the Table. 12:16:22 Remigio Prominences Protected 12:16:24 A # 20 IV was noted in the Antecubital (right). Grade = 0 12:16:33 Patient arrived on 1 inches NITRO OINTMENT via Peripheral IV. Left leg 12:16:36 HR=59 bpm, ULVM=729/93 mmhg, SpO2=96.0 %, Resp=9 B/min, Pain=0, [place]=10, Friedman=2 IV Solutions given in lab by Miriam Gonzalez, RN in Right Antecubital via Peripheral IV. Pump/D rip Flow = 20 ml/hr 12:16:56 using NaCl .9. 12:17:17 History and physical on the chart or being dictated. Assessment: Initial Case, HR=69 BPM, Rhythm=Sinus, NPIY=439/93 mmhg, Chest Pain=0, Edema=None, Color=Normal, Skin = Warm, Dry Right Pulses: Lane Ped=2, Femoral=1 12:17:18 Left Pulses: Lane Ped=2, Femoral=1 Neurological: State=Alert, Ox3, NUÑEZ Respiration: Resp=15 B/min, SpO2=97 %, O2=0 lpm 12:17:52 Right groin prepped with 2% chlorhexidine, and with a 3 min. waiting time. 12:20:58 MD paged 12:21:37 HR=58 bpm, NWRM=436/95 mmhg, SpO2=95.0 %, Resp=18 B/min, Pain=0, Cleveland=10, Friedman=2 12:23:36 MD arrived. 12:23:42 2 mg VERSED given in lab by Miriam Gonzalez, RN in Right Antecubital via Peripheral IV. 12:23:45 Pressure channel 1 zeroed. 12:26:36 HR=56 bpm, YDWY=156/97 mmhg, SpO2=95.0 %, Resp=14 B/min, Pain=0, Cleveland=10, Friedman=2 12:27:13 Reference ECG taken Time Out. Correct patient, correct procedure,correct physician, power injector loaded with cont rast with surgical team 12:29:28 present. Time Out Concurred by MD, individual staff and CONTENT MANAGER 12:30:04 Case Start 12:31:09 20 mL 1% XYLOCAINE given in lab by Klever Murillo in Right Groin via Subcutaneous. 12:31:35 HR=55 bpm, SQDC=022/90 mmhg, SpO2=96.0 %, Resp=24 B/min, Pain=0, Cleveland=10, Friedman=2 12:33:38 Access site was Right Femoral Artery. 12:33:53 A SHEATH, FR6.5 PRELUDE 11CM FR 6.5 was advanced into the Fem Art (right) using the Percuta neous technique. A JL 4.0 INFINITI CATHETER FR 6 was advanced over a wire. OMNIPAQUE, 350 MG, 100ML 100ML was us ed for 12:34:46 injections. Recorded Pressure: Ao, HR=57, Condition=Condition 1 12:36:30 (Aorta) Ao 126/74/96 12:36:40 HR=57 bpm, TARR=461/89 mmhg, SpO2=95.0 %, Resp=15 B/min, Pain=0, Cleveladn=10, Friedman=2 12:37:17 Catheter was removed A JL 4.5 INFINITI CATHETER FR 6 was advanced over a wire. OMNIPAQUE, 350 MG, 100ML 100ML was us ed for 12:38:17 injections. 12:39:40 The LCA was injected and visualized at various angles. OMNIPAQUE, 350 MG, 100ML 100ML used . 12:41:31 HR=55 bpm, CRHF=898/95 mmhg, SpO2=96.0 %, Resp=23 B/min, Pain=0, Cleveland=10, Friedman=2 12:42:48 Catheter was removed A JR 4.0 INFINITI CATHETER FR 6 was advanced over a wire. OMNIPAQUE, 350 MG, 100ML 100ML was us ed for 12:43:22 injections. 12:44:24 The RCA was injected and visualized at various angles. OMNIPAQUE, 350 MG, 100ML 100ML used . 12:45:31 Catheter was removed 12:46:36 HR=57 bpm, QGVA=265/90 mmhg, SpO2=94.0 %, Resp=23 B/min, Pain=0, Cleveland=10, Friedman=2 12:47:07 The RCA was injected and visualized at various angles. OMNIPAQUE, 350 MG, 100ML 100ML used . 12:48:43 Catheter was removed A PIGTAIL STR INFINITI CATHETER FR 6 was advanced over a wire. OMNIPAQUE, 350 MG, 50ML 50ML was used for 12:48:49 injections. Recorded Pressure: LV, HR=58, Condition=Condition 1 12:49:45 (Left Ventricle) LV 145/4/16 12:51:42 HR=63 bpm, EJGC=179/82 mmhg, SpO2=94.0 %, Resp=28 B/min, Pain=0, Cleveland=10, Friedman=2 12:51:48 The LV was injected at 12 cc/sec for a total of 30. OMNIPAQUE, 350 MG, 50ML 50ML used. Recorded Pressure: LV, Ao, HR=59, Condition=Condition 1 12:52:04 (Left Ventricle) LV 145/2/12, (Aorta) Ao 146/76/104 12:55:55 Catheter was removed 12:56:41 HR=63 bpm, NMJE=771/89 mmhg, SpO2=95.0 %, Resp=21 B/min, Pain=0, Cleveland=10, Friedman=2 12:56:53 Case End Assessment: Final Case, HR=59 BPM, Rhythm=Sinus, NCMZ=399/89 mmhg, Chest Pain=0, Edema=None, Color=Normal, Skin = Warm, Dry Right Pulses: Lane Ped=2, Femoral=1 12:57:42 Left Pulses: Lane Ped=2, Femoral=1 Neurological: State=Alert, Ox3, NUÑEZ Respiration: Resp=21 B/min, SpO2=95 %, O2=0 lpm 13:01:40 HR=57 bpm, RDRW=774/94 mmhg, SpO2=96.0 %, Resp=16 B/min, Pain=0, Cleveland=10, Friedman=2 13:02:36 No case complications noted. 13:02:39 Cine recording checked. 13:03:26 Bedside Report will be given. 13:03:33 A Left Heart Cath was performed. 13:06:43 Sterile dressing applied to site 13:08:03 HPSI=862/92 mmhg, SpO2=96.0 %, Pain=0, Cleveland=10, Friedman=2 13:09:32 Vitals capture stopped. 13:10:22 Patient moved to stretcher End Study - Contrast Media Used In Study Contrast Total Opened (mL) Total Used (mL) Total Wasted (mL) Omnipaque 150 95 55 End Study - Maximum Contrast Load Max Contrast Load (mL) 529.5 End Study - Radiation Exposure Fluoro Time (minutes) 4.0 End Study - Patient Disposition Complications Transferred To Interventional Outcome No Telemetry Bed No attempt made
[2017-05-06] MEDS ORDERED: MISC INFORMATION XX ONE (13:15)
[2017-05-06] MEDS ORDERED: IOHEXOL 350 MG/ML 100 ML BTL (for Cath Lab) OTHER ONE (13:58)
[2017-05-06] MEDS ORDERED: LIDOCAINE HCL 1% 50 ML VIAL INFIL PRN (14:00)
[2017-05-06] MEDS ORDERED: LORazepam 2 MG/ML VIAL IV PRN (14:00)
[2017-05-06] MEDS ORDERED: BACITRACIN OINT 0.9 GM PKT TOP ONE (14:00)
[2017-05-06] MEDS: ATORVASTATIN 10 MG TAB PO SCH (21:27)
[2017-05-07] VITALS (14 sets, daily range): BP systolic 132–140; BP diastolic 74–83; PULSE 52–64; RESP 18; TEMP 98.2–98.4; O2SAT 95–97
[2017-05-07] MEDS: NITROGLYCERIN 2% OINT 1 GM PACKET TOP SCH ×2 (05:01)
[2017-05-07 06:58] LABS: BASOPHIL # 0.1 TH/MM3 (0-0.2); BASOPHIL % 0.6 % (0.0-2.0); EOSINOPHIL # 0.3 TH/MM3 (0-0.4); HEMATOCRIT 38.2 % (39.0-51.0); HEMO FLAGS DIFF FINAL; LYMPH % 14.3 % (9.0-44.0); LYMPHOCYTE # 1.4 TH/MM3 (1.0-4.8); MEAN CELL VOLUME 83.2 FL (80.0-100.0); MEAN CORPUSCULAR HEMOGLOBIN 29.2 PG (27.0-34.0); MEAN CORPUSCULAR HGB CONC 35.1 % (32.0-36.0); MONO % 8.5 % (0.0-8.0); NEUT % 73.6 % (16.0-70.0); PLATELET COUNT 201 TH/MM3 (150-450); RED CELL DISTRIBUTION WIDTH 14.5 % (11.6-17.2); WHITE BLOOD COUNT 9.5 TH/MM3 (4.0-11.0)
[2017-05-07 07:11] LABS: BICARBONATE 25.5 MEQ/L (21.0-32.0); POTASSIUM 3.3 MEQ/L (3.5-5.1)
[2017-05-07] MEDS ORDERED: POTASSIUM CHLORIDE 20 MEQ CONTROLLED RELEASE TAB PO ONE (07:30)
--- NOTE | 2017-05-07 08:26 | PD.CARD.PN ---
Subjective Subjective Remarks Back pain better. anxious to go home Objective Vital Signs / I&O Vital Signs Date Time Temp Pulse Resp B/P Pulse Ox O2 Delivery O2 Flow Rate FiO2 05/07/17 07:01 58 05/07/17 06:07 57 05/07/17 05:00 56 05/07/17 04:00 52 05/07/17 03:50 98.4 56 132/74 97 05/07/17 03:00 59 05/07/17 02:00 52 05/07/17 01:00 54 05/07/17 00:00 60 05/06/17 23:00 97.9 58 118/70 95 05/06/17 23:00 58 05/06/17 22:00 60 05/06/17 21:00 74 05/06/17 20:00 74 05/06/17 20:00 98.4 84 105/69 93 05/06/17 19:00 86 05/06/17 18:01 72 05/06/17 17:01 62 05/06/17 16:00 58 05/06/17 15:35 99.8 54 18 159/90 95 05/06/17 15:00 55 05/06/17 14:01 56 05/06/17 12:00 84 05/06/17 11:45 98.6 88 18 161/108 94 05/06/17 11:00 88 05/06/17 10:00 56 05/06/17 09:06 98 05/06/17 09:00 60 05/06/17 08:30 98.6 61 18 136/78 94 05/06/17 08:30 94 Room Air I/O 05/06/17 05/06/17 05/06/17 05/07/17 05/07/17 05/07/17 07:00 15:00 23:00 07:00 15:00 23:00 Intake Total 240 ml 730 ml 960 ml Output Total 400 ml 550 ml 600 ml Balance -160 ml 180 ml 360 ml Intake Oral 240 ml 480 ml 960 ml IV Total 250 ml Output Urine Total 400 ml 550 ml 600 ml # Voids 3 # Bowel Movements 0 Physical Exam Groin OK Laboratory Laboratory Tests Test 05/06/17 05/07/17 14:51 05:39 D-Dimer Quantitative (PE/DVT) 3.20 MG/L FEU White Blood Count 9.5 TH/MM3 Red Blood Count 4.60 MIL/MM3 Hemoglobin 13.4 GM/DL Hematocrit 38.2 % Mean Corpuscular Volume 83.2 FL Mean Corpuscular Hemoglobin 29.2 PG Mean Corpuscular Hemoglobin 35.1 % Concent Red Cell Distribution Width 14.5 % Platelet Count 201 TH/MM3 Mean Platelet Volume 8.7 FL Neutrophils (%) (Auto) 73.6 % Lymphocytes (%) (Auto) 14.3 % Monocytes (%) (Auto) 8.5 % Eosinophils (%) (Auto) 3.0 % Basophils (%) (Auto) 0.6 % Neutrophils # (Auto) 7.0 TH/MM3 Lymphocytes # (Auto) 1.4 TH/MM3 Monocytes # (Auto) 0.8 TH/MM3 Eosinophils # (Auto) 0.3 TH/MM3 Basophils # (Auto) 0.1 TH/MM3 CBC Comment DIFF FINAL Differential Comment Sodium Level 141 MEQ/L Potassium Level 3.3 MEQ/L Chloride Level 106 MEQ/L Carbon Dioxide Level 25.5 MEQ/L Anion Gap 10 MEQ/L Blood Urea Nitrogen 17 MG/DL Creatinine 0.96 MG/DL Estimat Glomerular Filtration 80 ML/MIN Rate Random Glucose 96 MG/DL Calcium Level 8.6 MG/DL Assessment and Plan Problem List: (1) Chest pain Assessment and Plan: Stable CV. OK to D/C from CV standpoint. Will F/U in clinic. Problem Qualifiers (1) Chest pain: Qualified Code: R07.9 - Chest pain, unspecified type Klever Murillo MD May 07, 2017 08:26
[2017-05-07] MEDS: FAMOTIDINE 20 MG TAB PO SCH (08:50)
[2017-05-07] MEDS: VERAPAMIL HCL 240 MG SUSTAINED RELEASE TAB PO SCH (08:50)
[2017-05-07] MEDS: MULTIVITAMIN TAB PO SCH (08:50)
[2017-05-07] MEDS: SODIUM CHLORIDE 0.9% FLUSH 10 ML FLUSH IV FLUSH SCH (08:51)
[2017-05-07] MEDS: ATENOLOL 50 MG TAB PO SCH (08:51)
[2017-05-07] MEDS: POTASSIUM CHLORIDE 10 MEQ CAP PO SCH (08:51)
[2017-05-07] MEDS: PATIENT OWN MEDICATION (Chlorthalidone 25 MG) PO SCH (09:00)
[2017-05-07] MEDS ORDERED: ASPIRIN EC 81 MG TABEC PO SCH (09:00)
--- NOTE | 2017-05-07 09:20 | HHI.PR ---
Subjective Remarks cp and back pain better eager for dc no sob or pleurisy. Objective Vitals heart reg lung cta abd s/nt ext no edema Vital Signs Date Time Temp Pulse Resp B/P Pulse Ox O2 Delivery O2 Flow Rate FiO2 05/07/17 09:06 95 05/07/17 07:01 58 05/07/17 06:07 57 05/07/17 05:00 56 05/07/17 04:00 52 05/07/17 03:50 98.4 56 132/74 97 05/07/17 03:00 59 05/07/17 02:00 52 05/07/17 01:00 54 05/07/17 00:00 60 05/06/17 23:00 97.9 58 118/70 95 05/06/17 23:00 58 05/06/17 22:00 60 05/06/17 21:00 74 05/06/17 20:00 74 05/06/17 20:00 98.4 84 105/69 93 05/06/17 19:00 86 05/06/17 18:01 72 05/06/17 17:01 62 05/06/17 16:00 58 05/06/17 15:35 99.8 54 18 159/90 95 05/06/17 15:00 55 05/06/17 14:01 56 05/06/17 12:00 84 05/06/17 11:45 98.6 88 18 161/108 94 05/06/17 11:00 88 05/06/17 10:00 56 05/06/17 05/06/17 05/07/17 15:00 23:00 07:00 Intake Total 730 ml 960 ml Output Total 550 ml 600 ml Balance 180 ml 360 ml Intake Oral 480 ml 960 ml IV Total 250 ml Output Urine Total 550 ml 600 ml # Voids 3 # Bowel Movements 0 Result Diagram: 05/07/17 0539 05/07/17 0539 A/P Problem List: (1) Chest pain Status: Acute Plan: Pt presented with atypical cp with some pain also between shoulder blades. Gives a hx that it worsened with breathing initially Pt had ct to eval aorta 05/05 and radiologist comments on mildly enlarged mediastinal lymph nodes. pt gave no hx of recent resp illness. lexiscan abnormal and lhc showed 50percent mid lad and 30 percent cx. ...medical management. elevated d dimer noted. denies any cp/sob/pleurisy today He believes it was mostly anxiety I think we should avoid cta chest and the dye load....at this point the risk of dye and jonny seems higher....I will call pcp to f/u on repeat ct to follow mediastinal ln' s and to get cta chest should his sx's reoccur. f/u pcp and cardiolgoy. (2) Hypokalemia Status: Acute Plan: Replace and recheck. (3) GENEVA (obstructive sleep apnea) Status: Chronic Plan: pt on cpap. Problem Qualifiers (1) Chest pain: Qualified Code: R07.9 - Chest pain, unspecified type Deangelo Mishra MD May 07, 2017 09:20
[2017-05-07] MEDS ORDERED: ATOR20TA15 PO (09:21)
--- NOTE | 2017-05-07 09:22 | HHI.DCPOC ---
Discharge Care Plan Diagnosis: (1) Chest pain Goals to Promote Your Health * To prevent worsening of your condition and complications * To maintain your health at the optimal level Directions to Meet Your Goals Take your medications as prescribed Follow your dietary instruction Follow activity as directed Keep your appointments as scheduled Take your immunizations and boosters as scheduled If your symptoms worsen call your PCP, if no PCP go to Urgent Care Center or Emergency Room Smoking is Dangerous to Your Health. Avoid second hand smoke Call the 24-hour hour crisis hotline for domestic abuse at Deangelo Mishra MD May 07, 2017 09:22
--- NOTE | 2017-05-07 10:56 | MA ---
cc: SAMEER GILBERT MD DATE: 05/06/2017. PROCEDURE PERFORMED: Cardiac catheterization. DESCRIPTION OF THE PROCEDURE IN DETAIL: The patient was prepped and draped in the usual sterile fashion. A 6-sheath was inserted percutaneously into the right femoral artery. Coronary angiography was done with a Fay pre-formed catheter and left ventriculography was done on the right with a pigtail catheter. RESULTS: Aortic pressure was 160/80. Left ventricular end diastolic pressure was 2. There was no gradient across the aortic valve. CORONARY ANGIOGRAPHY: Dense calcification was present in the left main and proximal left anterior descending artery. The left anterior descending itself was very ectatic throughout its course. In the midportion of the left anterior descending a 50% stenosis was present. No other significant lesions were seen. The left circumflex is a large, actually codominant system. A large obtuse marginal branch is given off. Both the obtuse marginal branch and the circumflex itself were very ectatic. No significant stenoses were noted. The right coronary artery was codominant and a very ectatic artery as well with multiple luminal irregularities but no significant stenoses were seen. LEFT VENTRICULOGRAPHY: Left ventriculography demonstrated normal left ventricular cavity. Overall ejection fraction was estimated at 65%. MD JAMEE Kilpatrick/MACY /1:06 PM /10:47 AM
[2017-05-07] MEDS ORDERED: ATORVASTATIN 40 MG TAB PO SCH (21:00)
--- NOTE | 2017-05-18 14:32 | HHI.DS ---
Discharge Summary Admission Date May 04, 2017 at 21:42 Discharge Date: May 07, 2017 Admitting Diagnosis Chest Pain (1) Chest pain Diagnosis: Principal ICD Codes: R07.9 - Chest pain Status: Acute (2) Hypokalemia Diagnosis: Secondary ICD Codes: E87.6 - Hypokalemia Status: Acute (3) GENEVA (obstructive sleep apnea) Diagnosis: Secondary ICD Codes: G47.33 - Obstructive sleep apnea (adult) (pediatric) Status: Chronic Consultants Dr. William Murillo - Cardiology Procedures [facility] (05/06/2017) Dense calcification was present in the left main and proximal left anterior descending artery. The left anterior descending itself was very ectatic throughout its course. In the midportion of the left anterior descending a 50% stenosis was present. No other significant lesions were seen. The left circumflex is a large, actually codominant system. A large obtuse marginal branch is given off. Both the obtuse marginal branch and the circumflex itself were very ectatic. No significant stenoses were noted. The right coronary artery was codominant and a very ectatic artery as well with multiple luminal irregularities but no significant stenoses were seen. Left ventriculography demonstrated normal left ventricular cavity. Overall ejection fraction was estimated at 65%. Imaging Last Impressions Myocardial Perfusion Scan Nuc Med 05/05/17 0955 Signed Impressions: Service Date/Time: Friday, May 05, 2017 12:41 - CONCLUSION: Stress-induced ischemia of septum RISK CATEGORY: Low (<1%% Annual Mortality Rate) Chadwick Suarez MD FACR Aorta CTA 05/05/17 0000 Signed Impressions: Service Date/Time: Friday, May 05, 2017 09:14 - CONCLUSION: No acute vascular process. Mild right lung base atelectasis. Mildly prominent enhancing lymph nodes in the mediastinum may be reactive. Clinical and imaging followup recommended. Dc Ingram MD Chest X-Ray 05/04/17 195 Signed Impressions: Service Date/Time: Thursday, May 04, 2017 19:57 - CONCLUSION: 1. Minimal base atelectasis. No consolidation or significant effusion. Mildly tortuous aorta. José Manuel Anthony MD Hospital Course Chest pain - Pt presented with atypical CP with some pain also between shoulder blades. - He gives a hx that it worsened with breathing initially - Pt had CT to evaluate the aorta on 05/05 and radiologist comments on mildly enlarged mediastinal lymph nodes. Pt gave no hx of recent respiratory illness. - Lexiscan was performed (05/05) which noted stress-induced ischemia of septum and LHC was performed on 05/06 and showed 50% stenosis in the mid LAD and ejection fraction was estimated at 65%.. Pt was recommended for medical management. - Pt was noted to have an elevated d dimer but denies any cp/sob/pleurisy - The patient believes his chest pain was mostly anxiety - CTA was avoided that that time due to the dye load as the risk of dye and jonny seemed higher. - Pts PCP will need to f/u with repeat CT to follow mediastinal LN's and to get CTA chest should his sx's reoccur. - Pt will need to f/u with his PCP in 1 week - Pt will need to followup with Cardiology in 2 weeks. Pt Condition on Discharge: Stable Discharge Disposition: Discharge Home Discharge Instructions DIET: Follow Instructions for: Heart Healthy Diet Activities you can perform: Regular-No Restrictions Follow up Referrals: Cardiology - [address] william murillo PCP Follow-up - [address] law Changed Medications: Atorvastatin (Atorvastatin) 20 Mg Tab 40 MG PO DAILY for Cholesterol Management for 30 Days, TAB 3 Refills (Changed from: 20 MG; Removed Quantity; Refills: 0) Continued Medications: Aspirin (Aspirin) 325 Mg Tab 325 MG PO DAILY, #30 TAB 0 Refills Atenolol (Atenolol) 50 Mg Tab 50 MG PO DAILY for Blood Pressure Management, #30 TAB 0 Refills Chlorthalidone (Chlorthalidone) 25 Mg Tab 25 MG PO DAILY for Blood Pressure Management, #30 TAB 0 Refills Magnesium Oxide (Magnesium Oxide) 250 Mg Tab 250 MG PO DAILY, TAB 0 Refills Multiple Vitamin (Multiple Vitamin) 1 Tab 1 TAB PO DAILY for Nutritional Supplement, TAB 0 Refills Potassium Chloride ER (Potassium Chloride ER) 10 Meq Cap 10 MEQ PO DAILY for Electrolyte Replacement, #30 CAP 0 Refills Verapamil ER 24 HR (Verapamil ER 24 HR) 240 Mg Tab 240 MG PO DAILY for Blood Pressure Management, #30 TAB 0 Refills Miriam Hahn May 18, 2017 14:32
== END 2017-05-07 11:00 | disposition home or self-care (01) ==
LOC: PHED 18:56 → PHEDA 21:42 → PHEDH 05-05 01:26 → PH3B 05-05 07:40 → INTOOBSV 05-05 15:30 → OBSVTOIN 05-05 15:30 → HCIS 05-05 19:16
PROVIDERS: ADMIT Hospitalist; ATTEND Hospitalist
DX: R07.89 Other chest pain (principal); M54.9 Dorsalgia, unspecified; D72.829 Elevated white blood cell count, unspecified; E87.6 Hypokalemia; E78.5 Hyperlipidemia, unspecified; I10 Essential (primary) hypertension; Z87.891 Personal history of nicotine dependence; F32.9 Major depressive disorder, single episode, unspecified; R94.31 Abnormal electrocardiogram [ECG] [EKG]; F12.90 Cannabis use, unspecified, uncomplicated; G47.33 Obstructive sleep apnea (adult) (pediatric); J98.11 Atelectasis; Z79.82 Long term (current) use of aspirin; Z79.899 Other long term (current) drug therapy; Z23 Encounter for immunization
CPT/HCPCS: 71020; 71275; 74174; 78452; 80048; 80053; 82550; 82552; 83735; 84132; 84484; 85025; 85379; 85610; 85730; 90732; 93005; 93017; 93458; 96374; 99285; A9502; C1769; C1893; G0378; J1644; J2250; J2270; J2785; Q9967